=== PATIENT | male | born 1970 | race Caucasian/White ===

== ENCOUNTER 2022-01-22 12:25 | Inpatient (IN) | payer OTHER ==
[~2022-01-22] VITALS: Ht 172.7 cm; Wt 87.5 kg
[2022-01-22 13:20] LABS: HEMOGLOBIN 14.8 gm/dl (14.0-17.5); RED BLOOD COUNT 4.83 M/UL (4.20-5.50)
[2022-01-22 13:44] LABS: WHITE BLOOD COUNT 37.1 K/UL (4.5-11.0)
[2022-01-22 13:56] LABS: CAMPYLOBACTER Not Detected (Negative); PLESIOMONAS SHIGELLOIDES Not Detected (Negative); SALMONELLA Not Detected (Negative); VIBRIO Not Detected (Negative); VIBRIO CHOLERAE Not Detected (Negative)
[2022-01-22 13:57] LABS: ADENOVIRUS F 40/41 Not Detected (Negative); ASTROVIRUS Not Detected (Negative); CRYPTOSPORIDIUM Not Detected (Negative); E.COLI 0157 Not Detected (Negative); ENTAMOEBA HISTOLYTICA Not Detected (Negative); ENTEROAGGREGATIVE E.COLI (EAEC Not Detected (Negative); ENTEROPATHOGENIC E.COLI (EPEC) Not Detected (Negative); ENTEROTOXIGENIC E.COLI (ETEC) Not Detected (Negative); GIARDIA LAMBLIA Not Detected (Negative); NOROVIRUS GI/GII Not Detected (Negative); ROTOVIRUS A Not Detected (Negative); SAPOVIRUS Not Detected (Negative); SHIG/ENTEROINVAS.ECOLI (EIEC) Not Detected (Negative); SHIGA-LIK TOX.PRO.E.COLI (STEC Not Detected (Negative); YERSINIA ENTEROCOLITICA Not Detected (Negative)
[2022-01-22 15:35] LABS: CLOSTRIDIUM DIFFICILE TOX A/B Not Detected (Negative)
[2022-01-22] MEDS ORDERED: ATENOLOL50 MG PO (18:35)
[2022-01-22] MEDS ORDERED: PROZAC40 MG PO (18:35)
[2022-01-22] MEDS ORDERED: LISINOPRIL40 MG PO (18:36)
[2022-01-23 07:17] LABS: HEMOGLOBIN 12.1 gm/dl (14.0-17.5); RED BLOOD COUNT 4.08 M/UL (4.20-5.50); WHITE BLOOD COUNT 26.6 K/UL (4.5-11.0)
== END 2022-01-23 17:09 | disposition left against medical advice (07) | DRG 392 ==
LOC: ER1 12:25 → M/S 16:54 → CDU 16:54 → M/S 19:20
PROVIDERS: Physician Assistant; ADMIT Internal Medicine
DX: K52.9 Noninfective gastroenteritis and colitis, unspecified (principal); N17.9 Acute kidney failure, unspecified; Z20.822 Contact with and (suspected) exposure to COVID-19; E87.1 Hypo-osmolality and hyponatremia; F11.20 Opioid dependence, uncomplicated; K21.9 Gastro-esophageal reflux disease without esophagitis; E87.6 Hypokalemia; N20.0 Calculus of kidney; G47.00 Insomnia, unspecified; F17.210 Nicotine dependence, cigarettes, uncomplicated; F12.90 Cannabis use, unspecified, uncomplicated; E86.0 Dehydration; I10 Essential (primary) hypertension; F43.10 Post-traumatic stress disorder, unspecified; E86.1 Hypovolemia; F41.9 Anxiety disorder, unspecified; F32.A Depression, unspecified; Z80.42 Family history of malignant neoplasm of prostate; Z80.1 Family history of malignant neoplasm of trachea, bronchus and lung; Z82.5 Family history of asthma and other chronic lower respiratory diseases
CPT/HCPCS: 36415; 80053; 83605; 83690; 83735; 85025; 86140; 87040; 87507; 96374; 99285; C9113; J1956; J2543

== ENCOUNTER 2022-01-31 17:46 | Emergency (ER) | payer OTHER ==
[~2022-01-31 17:46] MED LIST: ATENOLOL50 MG PO; LISINOPRIL40 MG PO; PROZAC40 MG PO
[2022-01-31 20:10] LABS: HEMOGLOBIN 12.3 gm/dl (14.0-17.5); RED BLOOD COUNT 4.18 M/UL (4.20-5.50); WHITE BLOOD COUNT 10.5 K/UL (4.5-11.0)
[2022-01-31 20:33] LABS: BUN/CREATININE RATIO 12 (0-10)
[2022-01-31] MEDS ORDERED: IMODIUM CAP 2 MG2 MG PO (22:30)
[2022-01-31] MEDS ORDERED: ZOFRAN ODT 4 MG4 MG PO (22:30)
== END 2022-01-31 20:45 | disposition home or self-care (01) ==
LOC: ER1 17:46
PROVIDERS: Family Medicine
DX: K52.9 Noninfective gastroenteritis and colitis, unspecified (principal); F15.90 Other stimulant use, unspecified, uncomplicated; I10 Essential (primary) hypertension; F17.200 Nicotine dependence, unspecified, uncomplicated
CPT/HCPCS: 80053; 80307; 81001; 83605; 83690; 83735; 85025; 93005; 96374; 99284; J2405

== ENCOUNTER → 2022-02-23 | Day surgery (SDC) | payer OTHER ==
[~2022-02-23] MED LIST changes: +IMODIUM CAP 2 MG2 MG PO; +PREDNISONE10 MG PO; +ZOFRAN ODT 4 MG4 MG PO
== END | disposition home or self-care (01) ==
LOC: OR 08:21
DX: K29.50 Unspecified chronic gastritis without bleeding (principal); K31.9 Disease of stomach and duodenum, unspecified; K31.A15 Gastric intestinal metaplasia without dysplasia, involving multiple sites; K52.9 Noninfective gastroenteritis and colitis, unspecified; K21.00 Gastro-esophageal reflux disease with esophagitis, without bleeding; K44.9 Diaphragmatic hernia without obstruction or gangrene; K56.699 Other intestinal obstruction unspecified as to partial versus complete obstruction; K63.3 Ulcer of intestine; K64.1 Second degree hemorrhoids; E66.3 Overweight; Z72.0 Tobacco use; Z68.26 Body mass index [BMI] 26.0-26.9, adult
CPT/HCPCS: J2704; J7040

== ENCOUNTER → 2022-03-25 | Outpatient (CLI) | payer OTHER ==
[2022-03-25 10:53] LABS: HEMOGLOBIN 11.9 gm/dl (14.0-17.5); RED BLOOD COUNT 4.09 M/UL (4.20-5.50); WHITE BLOOD COUNT 17.6 K/UL (4.5-11.0)
== END ==
LOC: LAB 10:27
PROVIDERS: Internal Medicine Gastroenterology
DX: K50.812 Crohn's disease of both small and large intestine with intestinal obstruction (principal)
CPT/HCPCS: 36415; 83993; 85027